=== PATIENT | male | born 1965 | race Caucasian/White ===

== ENCOUNTER → 2016-06-01 | Outpatient (REF) | payer OTHER ==
[2016-06-01 16:51] LABS: ALBUMIN 3.7 GM/DL (3.2-5.2); ALBUMIN/GLOBULIN RATIO 1.48 (1.00-1.93); ALKALINE PHOSPHATASE 48 U/L (45-117); ALT/SGPT 35 U/L (12-78); ANION GAP 7 MEQ/L (8-16); AST/SGOT 18 U/L (15-37); BILIRUBIN,TOTAL 0.5 MG/DL (0.2-1.0); BLOOD UREA NITROGEN 10 MG/DL (7-18); CARBON DIOXIDE LEVEL 30 MEQ/L (21-32); CHLORIDE LEVEL 107 MEQ/L (98-107); CHOLESTEROL LEVEL 189 MG/DL (<200); CREATININE FOR GFR 0.87 MG/DL (0.70-1.30); GLOMERULAR FILTRATION RATE > 60.0 (>56); GLUCOSE, FASTING 81 MG/DL (70-105); POTASSIUM SERUM 3.9 MEQ/L (3.5-5.1); SODIUM LEVEL 144 MEQ/L (136-145); TOTAL PROTEIN 6.2 GM/DL (6.4-8.2); TRIGLYCERIDES LEVEL 206 MG/DL (<150)
== END ==
LOC: M SFHCSACK 13:00
PROVIDERS: ATTEND Physician Assistant
DX: I10 Essential (primary) hypertension (principal); E78.5 Hyperlipidemia, unspecified

== ENCOUNTER → 2016-06-05 | Outpatient (CLI) | payer OTHER ==
--- NOTE | 2016-06-05 10:41 | REP ---
Left hip: Two views. History: Pain in the left hip. Findings: AP and frog-leg views of the left hip demonstrate smooth rounded femoral head and intact hip joint space. Periarticular soft tissues are unremarkable. No erosive changes seen. The left hemipelvis appears intact. Impression: Negative left hip radiographs. Signed by Esteban Carolina MD 06/05/2016 02:39 P
== END ==
LOC: M SMT 08:14
PROVIDERS: ATTEND Physician Assistant
DX: M25.552 Pain in left hip (principal)

== ENCOUNTER → 2016-08-10 | Outpatient (CLI) | payer OTHER ==
[~2016-08-10] VITALS: Ht 180.3 cm; Wt 97.5 kg
[~2016-08-10] MED LIST: ATEN100T PO; LISI40TAB PO; NS 1,000 ML IV SCH; OMEP40CA2 PO; PROPOFOL 200 MG/20 ML VIAL As Ordered ONE; SIMV10TA2 PO
--- NOTE | 2016-08-10 12:39 | ROOR ---
Patient Name: Chris Francis Procedure Date: 08/10/2016 12:24 PM Date of : 1965 Age: 51 Room: [facility] Gender: Male Note Status: Finalized Procedure: Colonoscopy Indications: Screening for colorectal malignant neoplasm Providers: Javy GARCIA MD Referring MD: MARLI Rick PA-C Requesting Provider: Medicines: Monitored Anesthesia Care Complications: No immediate complications. Procedure: Pre-Anesthesia Assessment: - The heart rate, respiratory rate, oxygen saturations, blood pressure, adequacy of pulmonary ventilation, and response to care were monitored throughout the procedure. The Colonoscope was introduced through the anus and advanced to the terminal ileum, with identification of the appendiceal orifice and IC valve. The colonoscopy was performed without difficulty. The patient tolerated the procedure well. The quality of the bowel preparation was good. Findings: The perianal and digital rectal examinations were normal. (Exam: Complete, Prep: Good or Excellent.) A 6 mm polyp was found in the proximal ascending colon. The polyp was semi-sessile. The polyp was removed with a cold snare. Resection and retrieval were complete. The exam was otherwise without abnormality on direct and retroflexion views. Impression: - One 6 mm polyp in the proximal ascending colon, removed with a cold snare. Resected and retrieved. - The examination was otherwise normal on direct and retroflexion views. Recommendation: - Repeat colonoscopy in 3 years for surveillance. Javy Garcia MD Javy GARCIA MD 08/10/2016 12:39:31 PM This report has been signed electronically. Number of Addenda: 0 Note Initiated On: 08/10/2016 12:24 PM Estimated Blood Loss: Estimated blood loss: none.
[2016-08-10 13:00] VITALS: BP 132/86
== END | disposition home or self-care (01) ==
LOC: M OPP 10:17
PROVIDERS: ATTEND Internal Medicine Gastroenterology
DX: Z12.11 Encounter for screening for malignant neoplasm of colon (principal); D12.2 Benign neoplasm of ascending colon; I10 Essential (primary) hypertension; E78.5 Hyperlipidemia, unspecified; R12 Heartburn; M19.90 Unspecified osteoarthritis, unspecified site; M54.2 Cervicalgia; G47.30 Sleep apnea, unspecified; R06.83 Snoring; K21.9 Gastro-esophageal reflux disease without esophagitis; F17.210 Nicotine dependence, cigarettes, uncomplicated; M95.9 Acquired deformity of musculoskeletal system, unspecified; Z79.899 Other long term (current) drug therapy; Z88.8 Allergy status to other drugs, medicaments and biological substances; Z80.3 Family history of malignant neoplasm of breast; Z80.0 Family history of malignant neoplasm of digestive organs

== ENCOUNTER → 2017-01-15 | Outpatient (CLI) | payer OTHER ==
[~2017-01-15] MED LIST changes: -NS 1,000 ML IV SCH; -PROPOFOL 200 MG/20 ML VIAL As Ordered ONE
--- NOTE | 2017-01-21 09:43 | SLEEPHOME ---
DATE OF PROCEDURE: 01/15/2017 REFERRING PROVIDER: Alisha Rosado NP INTERPRETATION: Diagnostic home sleep testing was performed due to concern for the obstructive sleep apnea syndrome in this patient with a history of excessive somnolence and of snoring. For testing, a NOX-T3 respiratory monitoring device was used. Continuous record was made of pulse, oxygen saturation, air flow, chest and abdominal strain, and body position. 9 hours and 59 minutes of data were reviewed. Of these, 7 hours and 16 minutes were marked as time in bed. During the interval marked time in bed, there were 165 respiratory events identified of 10 seconds in duration or greater for a respiratory event index of 22.7. The events were primarily obstructive, but significant mixed and central activity was also seen. The patient's baseline pulse rate was 60 beats per minute. Pulse rate ranged 42 to 100. Baseline saturation was 92%. Lowest oxygen saturation 83%. Testing was performed in both the supine and nonsupine positions. IMPRESSION: Abnormal home sleep testing with repetitive respiratory events and oxygen desaturations to 83% with a respiratory event index of 22.7 is consistent with the obstructive sleep apnea syndrome. The possibility of a complex disorder also exists given the frequency of central events. RECOMMENDATION: The patient should be referred for formal sleep evaluation and in laboratory pressure titration. Given the occurrence of central activity, a bilevel device with backup rate may be needed.
== END ==
LOC: M SLEEP HO 08:36
PROVIDERS: ATTEND Nurse Practitioner Adult Health
DX: G47.30 Sleep apnea, unspecified (principal)

== ENCOUNTER → 2017-03-26 | Outpatient (REF) | payer OTHER ==
[2017-03-26 18:05] LABS: BASO % 0.5 % (0.0-1.0); EOS # 0.3 10^3/uL (0.0-0.50); EOS % 3.5 % (0.0-3.0); IMMATURE GRANULOCYTE % 0.3 % (0-0); LYMPH # 2.6 10^3/uL (1.5-4.5); LYMPH % 34.6 % (24.0-44.0); MEAN CORPUSCULAR HEMOGLOBIN 30.6 pg (27.0-33.0); MEAN CORPUSCULAR VOLUME 89.9 fl (80.0-96.0); MONO # 0.6 10^3/uL (0.0-0.8); MONO % 7.5 % (0.0-5.0); NEUTROPHILS % 53.6 % (36.0-66.0); PLATELET COUNT, AUTOMATED 250 10^3/uL (150-450); RED CELL DISTRIBUTION WIDTH 12.3 % (11.5-14.5); WHITE BLOOD COUNT 7.4 10^3/uL (4.0-10.0)
[2017-03-26 18:15] LABS: ALBUMIN 4.5 GM/DL (3.2-5.2); ALBUMIN/GLOBULIN RATIO 1.67 (1.00-1.93); ALKALINE PHOSPHATASE 55 U/L (45-117); ALT/SGPT 44 U/L (12-78); ANION GAP 6 MEQ/L (8-16); AST/SGOT 20 U/L (7-37); BILIRUBIN,TOTAL 0.6 MG/DL (0.2-1.0); BLOOD UREA NITROGEN 14 MG/DL (7-18); CALCIUM LEVEL 9.1 MG/DL (8.5-10.1); CARBON DIOXIDE LEVEL 27 MEQ/L (21-32); CHLORIDE LEVEL 108 MEQ/L (98-107); CHOLESTEROL LEVEL 157 MG/DL (<200); CREATININE FOR GFR 1.01 MG/DL (0.70-1.30); GLOMERULAR FILTRATION RATE > 60.0 (>56); GLUCOSE, FASTING 94 MG/DL (70-105); POTASSIUM SERUM 4.5 MEQ/L (3.5-5.1); SODIUM LEVEL 141 MEQ/L (136-145); TOTAL PROTEIN 7.2 GM/DL (6.4-8.2); TRIGLYCERIDES LEVEL 194 MG/DL (<150)
== END ==
LOC: M SFHCSACK 11:20
PROVIDERS: ATTEND Physician Assistant
DX: I10 Essential (primary) hypertension (principal); E78.5 Hyperlipidemia, unspecified

== ENCOUNTER → 2017-07-12 | Outpatient (REF) | payer OTHER ==
[2017-07-12 14:12] LABS: BASO % 0.6 % (0.0-1.0); EOS # 0.2 10^3/uL (0.0-0.50); EOS % 2.7 % (0.0-3.0); HEMATOCRIT 43.4 % (42.0-52.0); HEMOGLOBIN 14.6 g/dl (14.0-18.0); IMMATURE GRANULOCYTE % 0.1 % (0-3.0); LYMPH # 2.3 10^3/uL (1.5-4.5); LYMPH % 33.8 % (24.0-44.0); MEAN CORPUSCULAR HEMOGLOBIN 30.3 pg (27.0-33.0); MEAN CORPUSCULAR HGB CONC 33.6 g/dl (32.0-36.5); MONO # 0.5 10^3/uL (0.0-0.8); NEUTROPHILS # 3.7 10^3/uL (1.8-7.7); NEUTROPHILS % 54.8 % (36.0-66.0); PLATELET COUNT, AUTOMATED 244 10^3/uL (150-450); RED BLOOD COUNT 4.82 10^6/uL (4.30-6.10); RED CELL DISTRIBUTION WIDTH 12.5 % (11.5-14.5); WHITE BLOOD COUNT 6.8 10^3/uL (4.0-10.0)
[2017-07-12 14:30] LABS: TOTAL 25(OH) VITAMIN D 20.7 NG/ML (30.0-100.0)
[2017-07-12 14:33] LABS: ALBUMIN/GLOBULIN RATIO 1.38 (1.00-1.93); ALKALINE PHOSPHATASE 47 U/L (45-117); ALT/SGPT 28 U/L (12-78); ANION GAP 7 MEQ/L (8-16); AST/SGOT 16 U/L (7-37); BILIRUBIN,TOTAL 0.5 MG/DL (0.2-1.0); BLOOD UREA NITROGEN 10 MG/DL (7-18); CALCIUM LEVEL 9.1 MG/DL (8.5-10.1); CARBON DIOXIDE LEVEL 30 MEQ/L (21-32); CHLORIDE LEVEL 105 MEQ/L (98-107); CHOLESTEROL LEVEL 206 MG/DL (<200); CHOLESTEROL RISK RATIO 5.885 (<5); CREATININE FOR GFR 0.93 MG/DL (0.70-1.30); FREE T4 0.93 NG/DL (0.76-1.46); GLOMERULAR FILTRATION RATE > 60.0 (>56); GLUCOSE, FASTING 96 MG/DL (70-100); HDL CHOLESTEROL 35 MG/DL (>40); LDL CHOLESTEROL 116.2 MG/DL (<100); NON-HDL-C 171 MG/DL; POTASSIUM SERUM 4.3 MEQ/L (3.5-5.1); SODIUM LEVEL 142 MEQ/L (136-145); TOTAL PROTEIN 6.9 GM/DL (6.4-8.2); TRIGLYCERIDES LEVEL 274 MG/DL (<150)
== END ==
LOC: M SFHCSACK 09:16
DX: I10 Essential (primary) hypertension (principal); E78.5 Hyperlipidemia, unspecified; F41.1 Generalized anxiety disorder; Z13.21 Encounter for screening for nutritional disorder

== ENCOUNTER → 2017-10-22 | Outpatient (REF) | payer OTHER ==
[2017-10-22 12:29] LABS: BASO # 0.1 10^3/uL (0.0-0.2); BASO % 0.7 % (0.0-1.0); EOS # 0.3 10^3/uL (0.0-0.50); EOS % 3.4 % (0.0-3.0); HEMATOCRIT 44.6 % (42.0-52.0); HEMOGLOBIN 15.1 g/dl (13.5-17.5); IMMATURE GRANULOCYTE % 0.5 % (0-3.0); LYMPH # 2.2 10^3/uL (1.5-4.5); LYMPH % 29.6 % (24.0-44.0); MEAN CORPUSCULAR HGB CONC 33.9 g/dl (32.0-36.5); MEAN CORPUSCULAR VOLUME 88.5 fl (80.0-96.0); MONO # 0.6 10^3/uL (0.0-0.8); MONO % 7.4 % (0.0-5.0); NEUTROPHILS # 4.3 10^3/uL (1.8-7.7); NEUTROPHILS % 58.4 % (36.0-66.0); PLATELET COUNT, AUTOMATED 250 10^3/uL (150-450); RED BLOOD COUNT 5.04 10^6/uL (4.30-6.10); RED CELL DISTRIBUTION WIDTH 13.3 % (11.5-14.5); WHITE BLOOD COUNT 7.4 10^3/uL (4.0-10.0)
[2017-10-22 12:50] LABS: ALBUMIN 3.9 GM/DL (3.2-5.2); ALBUMIN/GLOBULIN RATIO 1.34 (1.00-1.93); ALKALINE PHOSPHATASE 53 U/L (45-117); ALT/SGPT 36 U/L (12-78); ANION GAP 5 MEQ/L (8-16); AST/SGOT 19 U/L (7-37); BILIRUBIN,TOTAL 0.7 MG/DL (0.2-1.0); BLOOD UREA NITROGEN 10 MG/DL (7-18); CALCIUM LEVEL 8.9 MG/DL (8.5-10.1); CARBON DIOXIDE LEVEL 30 MEQ/L (21-32); CHLORIDE LEVEL 107 MEQ/L (98-107); CHOLESTEROL LEVEL 141 MG/DL (<200); CHOLESTEROL RISK RATIO 4.272 (<5); CREATININE FOR GFR 1.11 MG/DL (0.70-1.30); GLOMERULAR FILTRATION RATE > 60.0 (>56); GLUCOSE, FASTING 106 MG/DL (70-100); HDL CHOLESTEROL 33 MG/DL (>40); LDL CHOLESTEROL 67.4 MG/DL (<100); NON-HDL-C 108 MG/DL; POTASSIUM SERUM 4.7 MEQ/L (3.5-5.1); SODIUM LEVEL 142 MEQ/L (136-145); TOTAL 25(OH) VITAMIN D 41.1 NG/ML (30.0-100.0); TOTAL PROTEIN 6.8 GM/DL (6.4-8.2); TRIGLYCERIDES LEVEL 203 MG/DL (<150)
== END ==
LOC: M SFHCADAM 09:08
DX: E78.5 Hyperlipidemia, unspecified (principal); I10 Essential (primary) hypertension; E55.9 Vitamin D deficiency, unspecified

== ENCOUNTER → 2018-05-11 | Outpatient (REF) | payer OTHER ==
[~2018-05-11] MED LIST changes: +LISI40TA PO; -LISI40TAB PO
[2018-05-11 14:11] LABS: BASO % 0.6 % (0.0-1.0); EOS # 0.4 10^3/uL (0.0-0.50); EOS % 6.3 % (0.0-3.0); HEMATOCRIT 41.3 % (42.0-52.0); HEMOGLOBIN 13.8 g/dl (13.5-17.5); LYMPH % 31.1 % (24.0-44.0); MEAN CORPUSCULAR HGB CONC 33.4 g/dl (32.0-36.5); MEAN CORPUSCULAR VOLUME 89.8 fl (80.0-96.0); MONO # 0.5 10^3/uL (0.0-0.8); MONO % 8.3 % (0.0-5.0); NEUTROPHILS # 3.5 10^3/uL (1.8-7.7); NEUTROPHILS % 53.5 % (36.0-66.0); PLATELET COUNT, AUTOMATED 214 10^3/uL (150-450); WHITE BLOOD COUNT 6.5 10^3/uL (4.0-10.0)
[2018-05-11 14:41] LABS: ALBUMIN 3.7 GM/DL (3.2-5.2); ALT/SGPT 27 U/L (12-78); BILIRUBIN,TOTAL 0.5 MG/DL (0.2-1.0); BLOOD UREA NITROGEN 10 MG/DL (7-18); CALCIUM LEVEL 8.4 MG/DL (8.5-10.1); CARBON DIOXIDE LEVEL 28 MEQ/L (21-32); CHLORIDE LEVEL 107 MEQ/L (98-107); CHOLESTEROL LEVEL 135 MG/DL (<200); CREATININE FOR GFR 0.97 MG/DL (0.70-1.30); GLOMERULAR FILTRATION RATE > 60.0 (>56); GLUCOSE, FASTING 104 MG/DL (70-100); HDL CHOLESTEROL 34 MG/DL (>40); LDL CHOLESTEROL 69 MG/DL (<100); NON-HDL-C 101 MG/DL; POTASSIUM SERUM 4.1 MEQ/L (3.5-5.1); SODIUM LEVEL 143 MEQ/L (136-145); TOTAL PROTEIN 6.3 GM/DL (6.4-8.2); TRIGLYCERIDES LEVEL 160 MG/DL (<150)
== END ==
LOC: M SFHCSACK 09:46
PROVIDERS: ATTEND Physician Assistant
DX: I10 Essential (primary) hypertension (principal); E78.5 Hyperlipidemia, unspecified; E55.9 Vitamin D deficiency, unspecified

== ENCOUNTER → 2018-07-12 | Outpatient (CLI) | payer OTHER ==
--- NOTE | 2018-07-12 10:54 | REP ---
Clinical: Hypertension and fatigue . Comparison: 10/30/2016 . Technique: PA and lateral. Findings: The mediastinum and cardiac silhouette are normal. The lung diaz are clear and without acute consolidation, effusion, or pneumothorax. The skeletal structures are intact and normal. Impression: 1. No acute cardiopulmonary process. Electronically Signed by Chris Pepe MD 07/12/2018 10:46 A
[2018-07-12 11:05] LABS: HEMATOCRIT 42.9 % (42.0-52.0); HEMOGLOBIN 14.2 g/dl (13.5-17.5); MEAN CORPUSCULAR HEMOGLOBIN 30.1 pg (27.0-33.0); MEAN CORPUSCULAR HGB CONC 33.1 g/dl (32.0-36.5); MEAN CORPUSCULAR VOLUME 90.9 fl (80.0-96.0); PLATELET COUNT, AUTOMATED 200 10^3/uL (150-450); RED BLOOD COUNT 4.72 10^6/uL (4.30-6.10)
[2018-07-12 11:33] LABS: HEMOGLOBIN A1c 6.4 %
[2018-07-12 11:38] LABS: ALBUMIN 3.9 GM/DL (3.2-5.2); ALT/SGPT 27 U/L (12-78); BILIRUBIN,TOTAL 0.5 MG/DL (0.2-1.0); BLOOD UREA NITROGEN 6 MG/DL (7-18); CALCIUM LEVEL 8.6 MG/DL (8.5-10.1); CARBON DIOXIDE LEVEL 30 MEQ/L (21-32); CHLORIDE LEVEL 109 MEQ/L (98-107); CHOLESTEROL LEVEL 112 MG/DL (<200); CHOLESTEROL RISK RATIO 3.111 (<5); CREATININE FOR GFR 0.94 MG/DL (0.70-1.30); GLOMERULAR FILTRATION RATE > 60.0 (>56); GLUCOSE, FASTING 85 MG/DL (70-100); HDL CHOLESTEROL 36 MG/DL (>40); LDL CHOLESTEROL 54 MG/DL (<100); NON-HDL-C 76 MG/DL; POTASSIUM SERUM 4.2 MEQ/L (3.5-5.1); SODIUM LEVEL 144 MEQ/L (136-145); TOTAL PROTEIN 6.4 GM/DL (6.4-8.2); TRIGLYCERIDES LEVEL 108 MG/DL (<150)
[2018-07-12 11:40] LABS: TOTAL 25(OH) VITAMIN D 47.3 NG/ML (30.0-100.0)
[2018-07-12 11:41] LABS: TESTOSTERONE 333 NG/DL (241-827)
--- NOTE | 2018-07-13 07:06 | ECGEPIP ---
Stationary ECG Study [facility] Test Date: 2018-07-12 Pat Name: AMEYA JERONIMO Department: Room: - Gender: M Residential [employer]: : 1965 Requested By: Colt Saenz Order Number: [id number] Reading MD: Garrick Do Measurements Intervals [place] Rate: 47 P: 33 DC: 149 QRS: 5 QRSD: 101 T: 38 QT: 445 QTc: 395 Interpretive Statements SINUS BRADYCARDIA Otherwise normal Electronically Signed On 07-13-2018 7:06:36 EST by Garrick Do
== END ==
LOC: M LAB 10:07
PROVIDERS: ATTEND Family Medicine
DX: I10 Essential (primary) hypertension (principal); R53.83 Other fatigue; E11.9 Type 2 diabetes mellitus without complications

== ENCOUNTER → 2019-12-30 | Outpatient (CLI) | payer OTHER ==
[~2019-12-30] MED LIST changes: -OMEP40CA2 PO; +OMEP40CA97 PO; -SIMV10TA2 PO; +SIMV10TA21 PO
== END ==
LOC: M LABSMTC 08:30
PROVIDERS: ATTEND Physical Medicine & Rehabilitation
DX: Z03.818 Encounter for observation for suspected exposure to other biological agents ruled out (principal); Z11.59 Encounter for screening for other viral diseases
CPT/HCPCS: C9803; U0003

== ENCOUNTER → 2020-01-20 | Outpatient (CLI) | payer OTHER | LOC: M LABSMTC 08:12 | PROVIDERS: ATTEND Orthopaedic Surgery | DX: Z20.828 Contact with and (suspected) exposure to other viral communicable diseases (principal) ==

== ENCOUNTER → 2020-02-03 | Outpatient (CLI) | payer OTHER | LOC: M LABSMTC 08:28 | PROVIDERS: ATTEND Orthopaedic Surgery | DX: Z20.828 Contact with and (suspected) exposure to other viral communicable diseases (principal) ==

== ENCOUNTER → 2020-04-24 | Outpatient (CLI) | payer OTHER ==
[~2020-04-24] MED LIST changes: +VITA500045 PO
== END ==
LOC: M LABSMTC 09:38
PROVIDERS: ATTEND Anesthesiology
DX: Z01.812 Encounter for preprocedural laboratory examination (principal); Z11.59 Encounter for screening for other viral diseases

== ENCOUNTER → 2020-08-05 | Outpatient (CLI) | payer OTHER ==
[~2020-08-05] MED LIST changes: -LISI40TA PO; +LISI40TA4 PO
[2020-08-05 10:02] LABS: HEMOGLOBIN 14.6 g/dl (13.5-17.5); MEAN CORPUSCULAR HEMOGLOBIN 29.9 pg (27.0-33.0); MEAN CORPUSCULAR HGB CONC 33.2 g/dl (32.0-36.5); MEAN CORPUSCULAR VOLUME 90.2 fl (80.0-96.0); PLATELET COUNT, AUTOMATED 229 10^3/uL (150-450); RED BLOOD COUNT 4.88 10^6/uL (4.30-6.10); WHITE BLOOD COUNT 6.9 10^3/uL (4.0-10.0)
[2020-08-05 10:28] LABS: HEMOGLOBIN A1c 5.9 %
[2020-08-05 11:14] LABS: ALBUMIN 3.8 GM/DL (3.2-5.2); ALT/SGPT 32 U/L (12-78); BILIRUBIN,TOTAL 0.5 MG/DL (0.2-1.0); BLOOD UREA NITROGEN 15 MG/DL (7-18); CALCIUM LEVEL 9.1 MG/DL (8.5-10.1); CARBON DIOXIDE LEVEL 26 MEQ/L (21-32); CHLORIDE LEVEL 106 MEQ/L (98-107); CHOLESTEROL LEVEL 153 MG/DL (<200); CREATININE FOR GFR 0.89 MG/DL (0.70-1.30); GLOMERULAR FILTRATION RATE > 60.0 (>56); GLUCOSE, FASTING 111 MG/DL (70-100); HDL CHOLESTEROL 34 MG/DL (>40); LDL CHOLESTEROL 79 MG/DL (<100); NON-HDL-C 119 MG/DL; POTASSIUM SERUM 4.6 MEQ/L (3.5-5.1); PROSTATIC SPECIFIC AG MONITOR 0.56 NG/ML (< 4.00); SODIUM LEVEL 139 MEQ/L (136-145); TESTOSTERONE 194 NG/DL (241-827); TOTAL PROTEIN 6.6 GM/DL (6.4-8.2); TRIGLYCERIDES LEVEL 201 MG/DL (<150)
== END ==
LOC: M LAB 09:28
PROVIDERS: ATTEND Family Medicine
DX: E03.9 Hypothyroidism, unspecified (principal); R53.83 Other fatigue; I10 Essential (primary) hypertension

== ENCOUNTER → 2020-11-05 | Outpatient (CLI) | payer OTHER ==
[~2020-11-05] MED LIST changes: +OMEP40CA4 PO; -OMEP40CA97 PO
[2020-11-05 10:19] LABS: GLUCOSE, FASTING 113 MG/DL (70-100)
[2020-11-05 10:44] LABS: HEMOGLOBIN A1c 5.9 %
[2020-11-05 11:54] LABS: TESTOSTERONE 251 NG/DL (241-827)
== END ==
LOC: M LAB 09:09
PROVIDERS: ATTEND Family Medicine
DX: I10 Essential (primary) hypertension (principal); E11.9 Type 2 diabetes mellitus without complications; E29.1 Testicular hypofunction

== ENCOUNTER 2021-03-20 10:16 | Emergency (ER) | payer OTHER ==
[~2021-03-20] VITALS: Ht 175.3 cm; Wt 102.8 kg
[2021-03-20 10:16] VITALS: BP 135/76
--- OUTSIDE RECORDS SUMMARY | 2021-03-20 10:27 | CCD ---
Author Author [facility] Organization [facility] Address Unknown Phone Unavailable Support Name Relationship Address Phone [place] [address] UE Next Of Kin Unknown Unavailable RENBEVERLYVALARIE Next Of Kin [address] [place] [address] [place] [address] LAN MANZANO SR Next Of Kin [address] [place] [address] MARIAM FRANCIS Next Of Kin [address] [place] [address] W[place]DO [place] [address] Mariam Francis [address] [place] [address] [phone] Re-disclosure Warning The records that you are about to access may contain information from federally-assisted alcohol or drug abuse programs. If such information is present, then the following federally mandated warning applies: This information has been disclosed to you from records protected by federal confidentiality rules (42 CFR part 2). The federal rules prohibit you from making any further disclosure of this information unless further disclosure is expressly permitted by the written consent of the person to whom it pertains or as otherwise permitted by 42 CFR part 2. A general authorization for the release of medical or other information is NOT sufficient for this purpose. The Federal rules restrict any use of the information to criminally investigate or prosecute any alcohol or drug abuse patient.The records that you are about to access may contain highly sensitive health information, the redisclosure of which is protected by Article 27-F of the [facility] Public Health law. If you continue you may have access to information: Regarding HIV / AIDS; Provided by facilities licensed or operated by the [facility] Office of Mental Health; or Provided by the [facility] Office for People With Developmental Disabilities. If such information is present, then the following [facility] mandated warning applies: This information has been disclosed to you from confidential records which are protected by state law. State law prohibits you from making any further disclosure of this information without the specific written consent of the person to whom it pertains, or as otherwise permitted by law. Any unauthorized further disclosure in violation of state law may result in a fine or halfway sentence or both. A general authorization for the release of medical or other information is NOT sufficient authorization for further disc losure. Family History Family Member Name Family Member Gender Family Member Status Date o f Status Description Data Source(s) Unknown Unknown Problem [facility] ([facility], ) Unknown Male Problem [facility] ([facility]) Unknown Male Problem [facility] () Unknown Female Problem [facility] ([facility] ) Immunizations Vaccine Date Status Description Data Source(s) COVID-19 VACCINE Moderna 09/09/2020 12:00:00 AM EDT completed [facility] Vaccine Series Complete: YESThis Data wa s Submitted to [facility] Via [employer] / [employer]. COVID-19 VACCINE Moderna 08/12/2020 12:00:00 AM EDT completed [facility] Vaccine Series Complete: NOThis Data was Submitted to [facility] Via [employer] / [employer]. VARICELLA-ZOSTER VIRUS GLYCOPROTEIN E,REC/AS01B ADJUVA NT/PF 02/05/2020 12:00:00 AM EDT completed [facility] INFLUENZA VIRUS VACCINE QUADRIVALENT 2019- (6 MOS AN D UP) 02/05/2020 12:00:00 AM EDT completed [facility] Medications Medication Brand Name Start Date Product Form Dose Route Admi nistrative Instructions Pharmacy Instructions Status Indications Reaction Description Data Source(s) 60 mcg (15 mcg x 4)/0.5 mL 02/26/2021 12:00:00 AM EDT syring e 0 INJECT INTRAMUSCULARLY DIRECTED INJECT INTRAMUSCULARLY DIRECTED SOLD: 02/26/2021 [facility] 10 mg 02/04/2021 12:00:00 AM EDT tablet 90 TAKE ONE TABLET BY MOUTH EVERY DAY TAKE ONE TABLET BY MOUTH EVERY DAY SOLD: 02/11/2021 [facility] 100 mg 02/03/2021 12:00:00 AM EDT tablet 90 TAKE ONE TABLET BY MOUTH EVERY DAY TAKE ONE TABLET BY MOUTH EVERY DAY SOLD: 02/11/2021 [facility] 40 mg 02/02/2021 12:00:00 AM EDT tablet 90 TAKE ONE TABLET BY MOUTH EVERY DAY TAKE ONE TABLET BY MOUTH EVERY DAY SOLD: 02/11/2021 [facility] 40 mg 02/01/2021 12:00:00 AM EDT tablet 90 TAKE ONE TABLET BY MOUTH EVERY DAY TAKE ONE TABLET BY MOUTH EVERY DAY SOLD: 02/11/2021 [facility] 40 mg 02/01/2021 12:00:00 AM EDT capsule,delayed release (DR/EC) 180 TAKE ONE CAPSULE BY MOUTH TWICE A DAY TAKE ONE CAPSULE BY MOUTH TWICE A DAY SOLD: 02/11/2021 [facility] 1,250 mcg (50,000 unit) 01/14/2021 12:00:00 AM EDT capsule 12 TAKE 1 CAPSULE BY MOUTH ONCE PER WEEK TAKE 1 CAPSULE BY MOUTH ONCE PER WEEK SOLD: 01/18/2021 [facility] 40 mg 11/17/2020 12:00:00 AM EDT tablet 90 TAKE ONE TABLET BY MOUTH EVERY DAY TAKE ONE TABLET BY MOUTH EVERY DAY SOLD: 11/20/2020 [facility] 10 mg 11/09/2020 12:00:00 AM EDT tablet 90 TAKE ONE TABLET BY MOUTH EVERY DAY TAKE ONE TABLET BY MOUTH EVERY DAY SOLD: 11/15/2020 [facility] 100 mg 11/07/2020 12:00:00 AM EDT tablet 90 TAKE ONE TABLET BY MOUTH EVERY DAY TAKE ONE TABLET BY MOUTH EVERY DAY SOLD: 11/08/2020 [facility] 40 mg 10/31/2020 12:00:00 AM EDT capsule,delayed release (DR/EC) 180 TAKE ONE CAPSULE BY MOUTH TWICE A DAY TAKE ONE CAPSULE BY MOUTH TWICE A DAY SOLD: 11/08/2020 [facility] 40 mg 10/31/2020 12:00:00 AM EDT tablet 90 TAKE ONE TABLET BY MOUTH EVERY DAY TAKE ONE TABLET BY MOUTH EVERY DAY SOLD: 11/08/2020 [facility] 1,250 mcg (50,000 unit) 08/20/2020 12:00:00 AM EDT capsule 4 TAKE 1 CAPSULE BY MOUTH ONCE PER WEEK TAKE 1 CAPSULE BY MOUTH ONCE PER WEEK SOLD: 10/24/2020 [facility] 1,250 mcg (50,000 unit) 08/20/2020 12:00:00 AM EDT capsule 4 TAKE 1 CAPSULE BY MOUTH ONCE PER WEEK TAKE 1 CAPSULE BY MOUTH ONCE PER WEEK SOLD: 09/24/2020 [facility] 1,250 mcg (50,000 unit) 08/20/2020 12:00:00 AM EDT capsule 4 TAKE 1 CAPSULE BY MOUTH ONCE PER WEEK TAKE 1 CAPSULE BY MOUTH ONCE PER WEEK SOLD: 08/27/2020 [facility] 100 mg 07/31/2020 12:00:00 AM EDT tablet 30 TAKE ONE TABLET BY MOUTH EVERY DAY TAKE ONE TABLET BY MOUTH EVERY DAY SOLD: 08/07/2020 [facility] 40 mg 07/31/2020 12:00:00 AM EDT tablet 30 TAKE ONE TABLET BY MOUTH EVERY DAY TAKE ONE TABLET BY MOUTH EVERY DAY SOLD: 08/07/2020 [facility] 40 mg 07/31/2020 12:00:00 AM EDT capsule,delayed release (DR/EC) 60 TAKE ONE CAPSULE BY MOUTH TWICE A DAY TAKE ONE CAPSULE BY MOUTH TWICE A DAY SOLD: 08/07/2020 [facility] 100 mg 07/31/2020 12:00:00 AM EDT tablet 30 TAKE ONE TABLET BY MOUTH EVERY DAY TAKE ONE TABLET BY MOUTH EVERY DAY SOLD: 10/14/2020 [facility] 40 mg 07/31/2020 12:00:00 AM EDT tablet 30 TAKE ONE TABLET BY MOUTH EVERY DAY TAKE ONE TABLET BY MOUTH EVERY DAY SOLD: 10/24/2020 [facility] 40 mg 07/31/2020 12:00:00 AM EDT tablet 30 TAKE ONE TABLET BY MOUTH EVERY DAY TAKE ONE TABLET BY MOUTH EVERY DAY SOLD: 09/24/2020 [facility] 100 mg 07/31/2020 12:00:00 AM EDT tablet 30 TAKE ONE TABLET BY MOUTH EVERY DAY TAKE ONE TABLET BY MOUTH EVERY DAY SOLD: 09/15/2020 [facility] 40 mg 07/31/2020 12:00:00 AM EDT tablet 30 TAKE ONE TABLET BY MOUTH EVERY DAY TAKE ONE TABLET BY MOUTH EVERY DAY SOLD: 08/07/2020 [facility] 0.12 % 06/26/2020 12:00:00 AM EST mouthwash 473 STARTING TOMORROW 5-10ML SWISH AND EXPECTORATE THREE TIMES A DAY STARTING TOMORROW 5-10ML SWISH AND EXPECTORATE THREE TIMES A DAY SOLD: 06/26/2020 [facility] 5-325 mg 06/26/2020 12:00:00 AM EST tablet 12 TAKE 1 TABLET BY MOUTH EVERY 4-6 HOUR NEEDED FOR PAIN MAXIMUM DAILY DOSE = FOUR TABLETS TAKE 1 TABLET BY MOUTH EVERY 4-6 HOUR NEEDED FOR PAIN MAXIMUM DAILY DOSE = FOUR TABLETS SOLD: 06/26/2020 [facility] 500 mg 06/26/2020 12:00:00 AM EST capsule 21 TAKE ONE CAPSULE BY MOUTH EVERY 8 HOURS TAKE ONE CAPSULE BY MOUTH EVERY 8 HOURS SOLD: 06/26/2020 [facility] Clindamycin 150 MG Oral Capsule CLINDAMYCIN HCL 06/05/2020 12:00 :00 AM EST capsule 30 TAKE ONE CAPSULE BY MOUTH EVERY 8 HOURS UNTIL GONE TAKE ONE CAPSULE BY MOUTH EVERY 8 HOURS UNTIL GONE SOLD: 06/05/2020 [facility] 1,250 mcg (50,000 unit) 04/30/2020 12:00:00 AM EST capsule 4 TAKE 1 CAPSULE BY MOUTH ONCE PER WEEK TAKE 1 CAPSULE BY MOUTH ONCE PER WEEK SOLD: 12/19/2020 [facility] 1,250 mcg (50,000 unit) 04/30/2020 12:00:00 AM EST capsule 4 TAKE 1 CAPSULE BY MOUTH ONCE PER WEEK TAKE 1 CAPSULE BY MOUTH ONCE PER WEEK SOLD: 07/25/2020 [facility] 1,250 mcg (50,000 unit) 04/30/2020 12:00:00 AM EST capsule 4 TAKE 1 CAPSULE BY MOUTH ONCE PER WEEK TAKE 1 CAPSULE BY MOUTH ONCE PER WEEK SOLD: 11/15/2020 [facility] 1,250 mcg (50,000 unit) 04/30/2020 12:00:00 AM EST capsule 12 TAKE 1 CAPSULE BY MOUTH ONCE PER WEEK TAKE 1 CAPSULE BY MOUTH ONCE PER WEEK SOLD: 05/06/2020 [facility] 100 mg 04/29/2020 12:00:00 AM EST tablet 90 TAKE ONE TABLET BY MOUTH EVERY DAY TAKE ONE TABLET BY MOUTH EVERY DAY SOLD: 05/06/2020 [facility] 40 mg 04/29/2020 12:00:00 AM EST tablet 90 TAKE ONE TABLET BY MOUTH EVERY DAY TAKE ONE TABLET BY MOUTH EVERY DAY SOLD: 05/06/2020 [facility] 10 mg 04/29/2020 12:00:00 AM EST tablet 90 TAKE ONE TABLET BY MOUTH EVERY DAY TAKE ONE TABLET BY MOUTH EVERY DAY SOLD: 05/06/2020 [facility] 40 mg 04/29/2020 12:00:00 AM EST tablet 90 TAKE ONE TABLET BY MOUTH EVERY DAY TAKE ONE TABLET BY MOUTH EVERY DAY SOLD: 05/06/2020 [facility] 40 mg 01/30/2020 12:00:00 AM EDT tablet 90 TAKE ONE TABLET BY MOUTH EVERY DAY TAKE ONE TABLET BY MOUTH EVERY DAY SOLD: 02/02/2020 [facility] 40 mg 01/30/2020 12:00:00 AM EDT tablet 90 TAKE ONE TABLET BY MOUTH EVERY DAY TAKE ONE TABLET BY MOUTH EVERY DAY SOLD: 02/02/2020 [facility] 40 mg 01/30/2020 12:00:00 AM EDT capsule,delayed release (DR/EC) 180 TAKE ONE CAPSULE BY MOUTH TWICE A DAY TAKE ONE CAPSULE BY MOUTH TWICE A DAY SOLD: 02/02/2020 [facility] Atenolol 100 MG Oral Tablet ATENOLOL 01/30/2020 12:00:00 AM EDT table t 90 TAKE ONE TABLET BY MOUTH EVERY DAY TAKE ONE TABLET BY MOUTH EVERY DAY SOLD: 02/02/2020 [facility] 40 mg 01/30/2020 12:00:00 AM EDT capsule,delayed release (DR/EC) 180 TAKE ONE CAPSULE BY MOUTH TWICE A DAY TAKE ONE CAPSULE BY MOUTH TWICE A DAY SOLD: 05/06/2020 [facility] 10 mg 01/30/2020 12:00:00 AM EDT tablet 90 TAKE ONE TABLET BY MOUTH EVERY DAY TAKE ONE TABLET BY MOUTH EVERY DAY SOLD: 02/02/2020 [facility] 1,250 mcg (50,000 unit) 12/19/2019 12:00:00 AM EDT capsule 12 TAKE 1 CAPSULE BY MOUTH ONCE PER WEEK TAKE 1 CAPSULE BY MOUTH ONCE PER WEEK SOLD: 02/02/2020 [facility] Insurance Providers Payer name Policy type / Coverage type Policy ID Covered democrat ID Covered democrat's relationship to best Policy Best Plan Information [facility] [employer] () Workers Compensation [id number] Self [id number] [facility] [employer] () Workers Compensation [id number] Self [facility] [id number] Self [id number] [facility] Community Plan Commercial [id number] Self [id number] [facility] Community Plan Commercial [id number] Self [id number] [facility] Community Plan Commercial [id number] Self [id number] [facility] Community Plan Commercial [id number] Self [id number] [facility] Community Plan Commercial [id number] Self [id number] [facility] Community Plan Commercial [id number] Self [id number] [facility] Community Plan Commercial [id number] Self [facility] Community Plan Commercial [id number] Self [id number] [facility] COMMUNITY PLAN [facility] [id number] SP [id number] [facility] Health Maintenance Organization (HMO) [id number] Self [id number] [facility] COMMUNITY PLAN [facility] [id number] SP [id number] BC/BS OF [place] P [id number] S [id number] Managed Care Healthplex O [id number] S [id number] Managed Care BCBS P [id number] S [id number] Medicaid S UNAVAILABLE S UNAVAILA BLE [employer] BCYO O [id number] S [id number] O BLUE [id number] SP [id number] [facility] COMMUNITY PLAN [facility] [id number] SP [id number] [facility] [id number] S [id number] Hmo Blue Option/Medicaid Health Maintenance Organization (HMO) V [id number] Self V [id number] Medicaid [place] Medigap Part B [id number] Self [id number] [facility] Health Maintenance Organization (O) [id number] Self [id number] ANSI-Medicaid [id number] ANSI-Medicaid [id number] ANSI-Medicaid [id number] [facility] Commercial [id number] Self 1 [id number] [employer] Medicaid Medicaid [id number] Self [id number] [facility] Blue Option/Medicaid Health Maintenance Organization (HMO) V [id number] Self V [id number] Medicaid [place] Medigap Part B [id number] Self [id number] Problems, Conditions, and Diagnoses No Information Surgeries/Procedures Procedure Description Date Indications Data Source(s) Colonoscopy W/ Poly 04/29/2020 12:00:00 AM EST [facility] ([facility], ) Results ID Date Data Source [id number] 04/29/2020 09:33:00 AM EST [facility] ([facility], ) Name Value Range Interpretation Code Description Data Velma rce(s) Supporting Document(s) Surgical pathology study Laboratory test result [facility] ([facility], ) FINAL DIAGNOSIS Colon, sigmoid polyp, polypectomy: Tubular adenoma. 04/30/2020 - 1053 CLINICAL DIAGNOSIS Colon polyps, family history colon cancer 04/29/2020 - 1446 GROSS DIAGNOSIS Received in formalin labeled "sigmoid polyp" and consists of a fragment of tissue, 0.6 x 0.6 x 0.2 cm. All in one. -OA 04/29/20201446 Signed ELAINE FERMIN MD 04/30/2020 1054 ID Date Data Source [id number] 04/24/2020 10:00:00 AM EST [facility] Name Value Range Interpretation Code Description Data Velma rce(s) Supporting Document(s) SARS coronavirus 2 RNA [facility] This lab was ordered by [facility] and reported by [facility]. ID Date Data Source [id number] 04/03/2020 12:00:00 AM EST [facility] Patient Name: JACINTA FRANCIS [facility] Date of : 1965 Date of Exam: 04/03/2020ALLY Hilario [id number]#: Fax: [phone] EXAM: MRI LUMBAR SPINE WITHOUT CONTRASTPROCEDURE INFORMATION:Exam: MR Lumbar Spine Without Contrast.Exam date and time: 04/03/2020 12:52 PM Age: 54 years oldClinical indication: Low back painTECHNIQUE: Imaging protocol: Multiplanar magnetic resonance images of thelumbar spine without intravenous contrast.COMPARISON: MRI LUMBAR SPINE WITHOUT CONTRAST 10/30/2017 9:03 AMFINDINGS:Vertebrae: 4 mm of retrolisthesis of L3 on L4. 5 mm of degenerativeretrolisthesis of L4 on L5. Slight lower lumbar dextroconvex scoliosis. Noacute fracture seen.Spinal epidural space: There is tapering of the AP thecal sac diameter atbaseline due to epidural lipomatosis, as before.Spinal cord: The conus medullaris ends normally. There is disc desiccationfrom L3-L4 and below. Disc height loss and spondylosis is pxfy-ib-obzxgsblgt L5-S1, mild at L3-L4 and L4-L5. Predominantly fatty degenerative marrowsignal change of the L4- L5 and L5-S1 endplates. There is tracedegenerative endplate inflammation.L1-L2: No significant disc disease. No significant spinal canal stenosis.No neural foraminal stenosis. L2-L3: No significant disc disease. Nosignificant spinal canal stenosis. No neural foraminal stenosis. L3-L4: Nosignificant interval change. Retrolisthesis. Mild to moderate diffuse discbulge and facet arthropathy. High-intensity zone in left posterior discmargin without a focal disc protrusion or extrusion. 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 The neural foramina are patent.L4-L5: Retrolisthesis. Moderate diffuse disc bulge and facet arthropathywith small facet joint effusions. Previously demonstrated left paracentraldisc protrusion is no longer identified. Highintensity zone in leftposterior disc margin. Mild central spinal canal stenosis present mostly onthe basis of dorsal lipomatosis. Mild left neural foraminal stenosis. Nosignificant right neural foraminal narrowing.L5-S1: No significant interval change. Marked diffuse disc osteophytecomplex as well as moderate facet arthropa thy with facet joint effusionsand small extra canalicular synovial cyst on the right. No significantcentral spinal canal stenosis. No S1 nerve root impingement. Moderate rightand mild-tomoderate left neural foraminal stenoses, the exiting L5 nerveroots contact foraminal to far lateral disc osteophyte.Soft tissues: Nonspecific edema in the back subcutaneous fat, potentiallydependent/positional.IMPRESSION:1. Previously demonstrated left paracentral disc protrusion at L4-L5 is nolonger seen.2. Otherwise no significant interval change.3. Moderate right and eebl-tw-jhrvvdri left neural foraminal stenoses atL5-S1 may be cause of L5 distribution radiculopathy.Thank you for allowing us to participate in the care of your patient.Dictated and Authenticated by: Brigid Guzman MD 04/03/2020 2:33 PMEastern Time ([place] & [place])VradV/jmcThank you for referring AMEYA FRANCIS to our office. Electronically Signed - [facility] 04/03/20 15:06 Name Value Range Interpretation Code Description Data Velma rce(s) Supporting Document(s) ID Date Data Source [id number] 02/03/2020 10:00:00 AM EDT [facility] ([facility]) Name Value Range Interpretation Code Description Data Velma rce(s) Supporting Document(s) Coronavirus 2019 Nasopharygeal Laboratory test result [facility] ([facility] ) This nucleic acid amplification test was developed and its performance characteristics determined by [employer]. Nucleic acid amplification tests include PCR and TMA. This test has not been FDA cleared or approved. This test has been authorized by FDA under an Emergency Use Authorization (EUA). This test is only authorized for the duration of time the declaration that circumstances exist justifying the authorization of the emergency use of in vitro diagnostic tests for detection of SARS-CoV-2 virus and/or diagnosis of COVID-19 infection under section 564(b)(1) of the Act, 21 U.S.C. 360bbb-3 (b) (1), unless the authorization is terminated or revoked sooner. When diagnostic testing is negative, the possibility of a false negative result should be considered in the context of a patient's recent exposures and the presence of clinical signs and symptoms consistent with COVID-19. An individual without symptoms of COVID-19 and who is not shedding SARS-CoV-2 virus would expect to have a negative (not detected) result in this assay. Performed at: [address] [id number] [employer] Operator: Beatriz Raya MD, Phone: [phone] Not Detected ID Date Data Source [id number] 02/03/2020 10:00:00 AM EDT [facility] Name Value Range Interpretation Code Description Data Velma rce(s) Supporting Document(s) SARS coronavirus 2 RNA [facility] This lab was ordered by [facility] and reported by [facility]. ID Date Data Source [id number] 01/20/2020 09:00:00 AM EDT [facility] ([facility]) Name Value Range Interpretation Code Description Data Velma rce(s) Supporting Document(s) Coronavirus 2019 Nasopharygeal Laboratory test result [facility] ([facility]) This nucleic acid amplification test was developed and its performance characteristics determined by [employer]. Nucleic acid amplification tests include PCR and TMA. This test has not been FDA cleared or approved. This test has been authorized by FDA under an Emergency Use Authorization (EUA). This test is only authorized for the duration of time the declaration that circumstances exist justifying the authorization of the emergency use of in vitro diagnostic tests for detection of SARS-CoV-2 virus and/or diagnosis of COVID-19 infection under section 564(b)(1) of the Act, 21 U.S.C. 360bbb-3 (b) (1), unless the authorization is terminated or revoked sooner. When diagnostic testing is negative, the possibility of a false negative result should be considered in the context of a patient's recent exposures and the presence of clinical signs and symptoms consistent with COVID-19. An individual without symptoms of COVID-19 and who is not shedding SARS-CoV-2 virus would expect to have a negative (not detected) result in this assay. Performed at: [address] [id number] [employer] Operator: Beatriz Raya MD, Phone: [phone] Not Detected ID Date Data Source [id number] 01/20/2020 09:00:00 AM EDT [facility] Name Value Range Interpretation Code Description Data Velma rce(s) Supporting Document(s) SARS coronavirus 2 RNA [facility] This lab was ordered by [facility] and reported by [facility]. Procedure Social History No Information
--- NOTE | 2021-03-20 13:27 | REP ---
INDICATION: short of breath, 2 weeks COMPARISON: 07/12/2018. TECHNIQUE: PA/Lateral FINDINGS: Lungs: Clear, no infiltrate. Heart: Normal in size. Mediastinum: Mediastinal silhouette unremarkable. Pleural angles: Unremarkable.. Bones and soft tissues: Unremarkable. IMPRESSION: No acute pulmonary disease. <Electronically signed by Genaro Lewis > 03/20/21 3301
== END 2021-03-20 16:19 | disposition left against medical advice (07) ==
LOC: M ED 10:16
DX: Z53.21 Procedure and treatment not carried out due to patient leaving prior to being seen by health care provider (principal)

== ENCOUNTER → 2021-03-21 | Outpatient (CLI) | payer OTHER ==
[2021-03-21 16:04] LABS: BASO # 0.1 10^3/uL (0.0-0.2); BASO % 0.6 % (0.0-1.0); EOS # 0.3 10^3/uL (0.0-0.5); EOS % 3.3 % (0.0-3.0); HEMOGLOBIN 15.8 g/dl (13.5-17.5); LYMPH % 37.2 % (24.0-44.0); MEAN CORPUSCULAR HEMOGLOBIN 30.3 pg (27.0-33.0); MEAN CORPUSCULAR HGB CONC 33.6 g/dl (32.0-36.5); MONO # 0.6 10^3/uL (0.0-0.8); MONO % 7.8 % (2.0-8.0); NEUTROPHILS % 50.8 % (36.0-66.0); PLATELET COUNT, AUTOMATED 261 10^3/uL (150-450); RED BLOOD COUNT 5.22 10^6/uL (4.30-6.10); WHITE BLOOD COUNT 7.9 10^3/uL (4.0-10.0)
[2021-03-21 16:28] LABS: ALBUMIN 4.1 GM/DL (3.2-5.2); ALT/SGPT 33 U/L (12-78); BILIRUBIN,TOTAL 0.5 MG/DL (0.2-1.0); BLOOD UREA NITROGEN 10 MG/DL (7-18); CALCIUM LEVEL 9.6 MG/DL (8.5-10.1); CARBON DIOXIDE LEVEL 31 MEQ/L (21-32); CHLORIDE LEVEL 103 MEQ/L (98-107); CK-MB VALUE MASS 1.3 NG/ML (<3.6); CPK CREATINE PHOSPHOKINASE 120 U/L (39-308); CREATININE FOR GFR 1.09 MG/DL (0.70-1.30); GLOMERULAR FILTRATION RATE > 60.0 (>56); GLUCOSE, FASTING 90 MG/DL (70-100); MAGNESIUM LEVEL 2.4 MG/DL (1.8-2.4); MB/CK RELATIVE INDEX 1.08 (< OR =4); NT-PRO BNP 71 PG/ML (<125); PHOSPHORUS LEVEL 4.6 MG/DL (2.5-4.9); POTASSIUM SERUM 4.1 MEQ/L (3.5-5.1); SODIUM LEVEL 142 MEQ/L (136-145); TOTAL PROTEIN 7.2 GM/DL (6.4-8.2); TROPONIN I < 0.02 NG/ML (< 0.10)
[2021-03-22 11:49] LABS: H PYLORI QUALITATIVE IgG DETECTED (NEGATIVE)
== END ==
LOC: M WUC 13:44
PROVIDERS: ATTEND Nurse Practitioner Family
DX: R07.9 Chest pain, unspecified (principal); K21.9 Gastro-esophageal reflux disease without esophagitis

== ENCOUNTER → 2021-03-25 | Outpatient (REF) | payer OTHER | LOC: M WUC 10:15 | PROVIDERS: ATTEND Nurse Practitioner Family | DX: K21.9 Gastro-esophageal reflux disease without esophagitis (principal); R19.7 Diarrhea, unspecified ==

== ENCOUNTER → 2021-12-09 | Outpatient (CLI) | payer OTHER ==
[2021-12-09 11:32] LABS: HEMATOCRIT 43.4 % (42.0-52.0); HEMOGLOBIN 14.9 g/dl (13.5-17.5); MEAN CORPUSCULAR HEMOGLOBIN 31.1 pg (27.0-33.0); MEAN CORPUSCULAR HGB CONC 34.3 g/dl (32.0-36.5); MEAN CORPUSCULAR VOLUME 90.6 fl (80.0-96.0); PLATELET COUNT, AUTOMATED 219 10^3/uL (150-450); RED BLOOD COUNT 4.79 10^6/uL (4.30-6.10); WHITE BLOOD COUNT 7.3 10^3/uL (4.0-10.0)
[2021-12-09 11:57] LABS: HEMOGLOBIN A1c 5.9 %
[2021-12-09 12:11] LABS: ALBUMIN 3.7 GM/DL (3.2-5.2); ALT/SGPT 27 U/L (12-78); BILIRUBIN,TOTAL 0.4 MG/DL (0.2-1.0); BLOOD UREA NITROGEN 11 MG/DL (7-18); CALCIUM LEVEL 9.2 MG/DL (8.5-10.1); CARBON DIOXIDE LEVEL 27 MEQ/L (21-32); CHLORIDE LEVEL 111 MEQ/L (98-107); CHOLESTEROL LEVEL 125 MG/DL (<200); CHOLESTEROL RISK RATIO 3.787 (<5); CREATININE FOR GFR 0.96 MG/DL (0.70-1.30); GLOMERULAR FILTRATION RATE > 60.0 (>56); GLUCOSE, FASTING 110 MG/DL (70-100); HDL CHOLESTEROL 33 MG/DL (>40); LDL CHOLESTEROL 67 MG/DL (<100); NON-HDL-C 92 MG/DL; POTASSIUM SERUM 4.7 MEQ/L (3.5-5.1); SODIUM LEVEL 143 MEQ/L (136-145); TOTAL PROTEIN 6.3 GM/DL (6.4-8.2); TRIGLYCERIDES LEVEL 126 MG/DL (<150)
[2021-12-09 12:58] LABS: TESTOSTERONE 335 NG/DL (241-827)
[2021-12-10 12:15] LABS: PROSTATIC SPECIFIC AG MONITOR 0.57 NG/ML (< 4.00)
== END ==
LOC: M LAB 09:40
PROVIDERS: ATTEND Family Medicine
DX: I10 Essential (primary) hypertension (principal); R53.83 Other fatigue; E03.9 Hypothyroidism, unspecified

== ENCOUNTER → 2022-08-18 | Outpatient (CLI) | payer OTHER ==
[2022-08-18 08:23] LABS: MEAN CORPUSCULAR HEMOGLOBIN 30.4 pg (27.0-33.0); MEAN CORPUSCULAR HGB CONC 34.1 g/dl (32.0-36.5); MEAN CORPUSCULAR VOLUME 89.1 fl (80.0-96.0); PLATELET COUNT, AUTOMATED 266 10^3/uL (150-450); RED BLOOD COUNT 4.94 10^6/uL (4.30-6.10); WHITE BLOOD COUNT 7.5 10^3/uL (4.0-10.0)
[2022-08-18 09:03] LABS: ALBUMIN 3.6 G/DL (3.2-5.2); ALKALINE PHOSPHATASE 53 U/L (46-116); ALT/SGPT 25 U/L (7.0-40); AST/SGOT 18 U/L (<34); BILIRUBIN,TOTAL 0.6 MG/DL (0.3-1.2); BLOOD UREA NITROGEN 11 MG/DL (9-23); CALCIUM LEVEL 8.8 MG/DL (8.5-10.1); CARBON DIOXIDE LEVEL 28 MMOL/L (20-31); CHLORIDE LEVEL 107 MMOL/L (98-107); CHOLESTEROL LEVEL 142 MG/DL (<200); CHOLESTEROL RISK RATIO 4.58 (<5); CREATININE FOR GFR 0.95 MG/DL (0.70-1.30); GLOMERULAR FILTRATION RATE > 60.0 (>56); GLUCOSE, FASTING 108 MG/DL (60-100); POTASSIUM SERUM 4.3 MMOL/L (3.5-5.1); PROSTATIC SPECIFIC AG MONITOR 0.64 NG/ML (< 4.00); SODIUM LEVEL 137 MMOL/L (136-145); TESTOSTERONE 241 NG/DL (241-827); THYROID STIMULATING HORMONE 2.785 uIU/ML (0.55-4.78); TRIGLYCERIDES LEVEL 185 MG/DL (<150)
== END ==
LOC: M LAB 07:43
PROVIDERS: ATTEND Family Medicine
DX: I10 Essential (primary) hypertension (principal)

== ENCOUNTER → 2023-05-07 | Outpatient (CLI) | payer OTHER ==
[2023-05-07 08:40] LABS: HEMATOCRIT 42.6 % (42.0-52.0); HEMOGLOBIN 14.6 g/dl (13.5-17.5); MEAN CORPUSCULAR HEMOGLOBIN 31.1 pg (27.0-33.0); MEAN CORPUSCULAR HGB CONC 34.3 g/dl (32.0-36.5); MEAN CORPUSCULAR VOLUME 90.6 fl (80.0-96.0); PLATELET COUNT, AUTOMATED 214 10^3/uL (150-450); WHITE BLOOD COUNT 6.9 10^3/uL (4.0-10.0)
[2023-05-07 09:11] LABS: PROSTATIC SPECIFIC AG MONITOR 0.56 NG/ML (< 4.00)
[2023-05-07 09:14] LABS: ALBUMIN 3.6 G/DL (3.2-5.2); ALKALINE PHOSPHATASE 52 U/L (46-116); ALT/SGPT 23 U/L (7.0-40); AST/SGOT 16 U/L (<34); BILIRUBIN,TOTAL 0.6 MG/DL (0.3-1.2); BLOOD UREA NITROGEN 11 MG/DL (9-23); CALCIUM LEVEL 9.2 MG/DL (8.5-10.1); CARBON DIOXIDE LEVEL 29 MMOL/L (20-31); CHLORIDE LEVEL 108 MMOL/L (98-107); CHOLESTEROL LEVEL 148 MG/DL (<200); CHOLESTEROL RISK RATIO 4.27 (<5); GLOMERULAR FILTRATION RATE > 60.0 (>56); GLUCOSE, FASTING 114 MG/DL (60-100); HDL CHOLESTEROL 34.6 MG/DL (>40); LDL CHOLESTEROL 72.2 MG/DL (<100); NON-HDL-C 113.4 MG/DL; POTASSIUM SERUM 4.3 MMOL/L (3.5-5.1); SODIUM LEVEL 143 MMOL/L (136-145); TRIGLYCERIDES LEVEL 206 MG/DL (<150)
[2023-05-07 09:15] LABS: THYROID STIMULATING HORMONE 1.952 uIU/ML (0.55-4.78)
[2023-05-07 09:16] LABS: TESTOSTERONE 307 NG/DL (241-827); TOTAL 25(OH) VITAMIN D 70.9 NG/ML (20.0-100.0)
== END ==
LOC: M LAB 08:08
PROVIDERS: ATTEND Family Medicine
DX: I10 Essential (primary) hypertension (principal); R53.83 Other fatigue; E03.9 Hypothyroidism, unspecified

== ENCOUNTER → 2023-07-07 | Outpatient (CLI) | payer OTHER | LOC: M RAD 07:58 | PROVIDERS: ATTEND Family Medicine | DX: M54.30 Sciatica, unspecified side (principal) ==

== ENCOUNTER → 2023-09-20 | Outpatient (CLI) | payer OTHER ==
[2023-09-20 08:14] LABS: HEMATOCRIT 41.7 % (42.0-52.0); HEMOGLOBIN 14.3 g/dl (13.5-17.5); MEAN CORPUSCULAR HEMOGLOBIN 31.2 pg (27.0-33.0); MEAN CORPUSCULAR HGB CONC 34.3 g/dl (32.0-36.5); MEAN CORPUSCULAR VOLUME 90.8 fl (80.0-96.0); PLATELET COUNT, AUTOMATED 209 10^3/uL (150-450); RED BLOOD COUNT 4.59 10^6/uL (4.30-6.10); WHITE BLOOD COUNT 6.8 10^3/uL (4.0-10.0)
[2023-09-20 08:46] LABS: ALBUMIN 3.3 G/DL (3.2-5.2); ALKALINE PHOSPHATASE 54 U/L (46-116); ALT/SGPT 27 U/L (7.0-40); AST/SGOT 17 U/L (<34); BILIRUBIN,TOTAL 0.4 MG/DL (0.3-1.2); BLOOD UREA NITROGEN 11 MG/DL (9-23); CALCIUM LEVEL 8.7 MG/DL (8.5-10.1); CARBON DIOXIDE LEVEL 28 MMOL/L (20-31); CHLORIDE LEVEL 108 MMOL/L (98-107); GLOMERULAR FILTRATION RATE > 60.0 (>56); GLUCOSE, FASTING 146 MG/DL (60-100); POTASSIUM SERUM 4.6 MMOL/L (3.5-5.1); PROSTATIC SPECIFIC AG MONITOR 0.49 NG/ML (< 4.00); SODIUM LEVEL 141 MMOL/L (136-145); TOTAL PROTEIN 5.9 G/DL (5.7-8.2)
[2023-09-20 08:50] LABS: TESTOSTERONE 204 NG/DL (241-827)
[2023-09-20 08:58] LABS: HEMOGLOBIN A1c 6.4 % (4.0-6.0)
== END ==
LOC: M LAB 07:38
PROVIDERS: ATTEND Family Medicine
DX: R53.83 Other fatigue (principal); I10 Essential (primary) hypertension; E07.9 Disorder of thyroid, unspecified

== ENCOUNTER → 2023-09-21 | Outpatient (REF) | payer OTHER | LOC: M SFHCDERM 17:25 | PROVIDERS: ATTEND Physician Assistant | DX: L82.1 Other seborrheic keratosis (principal) ==

== ENCOUNTER → 2024-03-20 | Outpatient (CLI) | payer OTHER ==
[2024-03-20 08:43] LABS: HEMATOCRIT 46.6 % (42.0-52.0); HEMOGLOBIN 16.1 g/dl (13.5-17.5); MEAN CORPUSCULAR HEMOGLOBIN 30.4 pg (27.0-33.0); MEAN CORPUSCULAR HGB CONC 34.5 g/dl (32.0-36.5); MEAN CORPUSCULAR VOLUME 87.9 fl (80.0-96.0); PLATELET COUNT, AUTOMATED 200 10^3/uL (150-450)
[2024-03-20 08:57] LABS: PROSTATIC SPECIFIC AG MONITOR 0.64 NG/ML (< 4.00)
[2024-03-20 08:58] LABS: HEMOGLOBIN A1c 6.1 % (4.0-6.0)
[2024-03-20 08:59] LABS: ALBUMIN 3.7 G/DL (3.2-5.2); ALKALINE PHOSPHATASE 50 U/L (40-129); ALT/SGPT 26 U/L (7.0-40); AST/SGOT 12 U/L (<34); BILIRUBIN,TOTAL 0.5 MG/DL (0.3-1.2); BLOOD UREA NITROGEN 12 MG/DL (9-23); CALCIUM LEVEL 9.8 MG/DL (8.5-10.1); CARBON DIOXIDE LEVEL 29 MMOL/L (20-31); CHLORIDE LEVEL 108 MMOL/L (98-107); CHOLESTEROL LEVEL 124 MG/DL (<200); CHOLESTEROL RISK RATIO 4.03 (<5); CREATININE FOR GFR 0.89 MG/DL (0.70-1.30); GLOMERULAR FILTRATION RATE > 60.0 (>56); GLUCOSE, FASTING 114 MG/DL (60-100); HDL CHOLESTEROL 30.7 MG/DL (>40); LDL CHOLESTEROL 64.1 MG/DL (<100); NON-HDL-C 93.3 MG/DL; POTASSIUM SERUM 4.6 MMOL/L (3.5-5.1); SODIUM LEVEL 142 MMOL/L (136-145); TOTAL PROTEIN 6.5 G/DL (5.7-8.2); TRIGLYCERIDES LEVEL 146 MG/DL (<150)
[2024-03-20 09:01] LABS: TESTOSTERONE 240 NG/DL (241-827); THYROID STIMULATING HORMONE 1.989 uIU/ML (0.55-4.78)
== END ==
LOC: M RAD 07:42
PROVIDERS: ATTEND Family Medicine
DX: I10 Essential (primary) hypertension (principal); R53.83 Other fatigue; E03.9 Hypothyroidism, unspecified; R00.1 Bradycardia, unspecified

== ENCOUNTER → 2024-07-11 | Outpatient (REF) | payer OTHER ==
[2024-07-11 14:46] LABS: BASO # 0.1 10^3/uL (0.0-0.2); BASO % 0.6 % (0.0-1.0); EOS # 0.2 10^3/uL (0.0-0.5); EOS % 2.2 % (0.0-3.0); HEMATOCRIT 49.1 % (42.0-52.0); HEMOGLOBIN 16.3 g/dl (13.5-17.5); LYMPH # 2.5 10^3/uL (1.5-5.0); LYMPH % 30.8 % (24.0-44.0); MEAN CORPUSCULAR HEMOGLOBIN 30.9 pg (27.0-33.0); MEAN CORPUSCULAR HGB CONC 33.2 g/dl (32.0-36.5); MONO # 0.7 10^3/uL (0.0-0.8); MONO % 8.5 % (2.0-8.0); NEUTROPHILS # 4.6 10^3/uL (1.5-8.5); NEUTROPHILS % 57.8 % (36.0-66.0); PLATELET COUNT, AUTOMATED 239 10^3/uL (150-450); RED BLOOD COUNT 5.28 10^6/uL (4.30-6.10)
[2024-07-11 14:49] LABS: ALBUMIN 4.2 G/DL (3.2-5.2); ALKALINE PHOSPHATASE 58 U/L (40-129); ALT/SGPT 36 U/L (7.0-40); AST/SGOT 20 U/L (<34); BILIRUBIN,TOTAL 0.6 MG/DL (0.3-1.2); BLOOD UREA NITROGEN 9 MG/DL (9-23); CALCIUM LEVEL 9.1 MG/DL (8.5-10.1); CARBON DIOXIDE LEVEL 27 MMOL/L (20-31); CHLORIDE LEVEL 106 MMOL/L (98-107); CHOLESTEROL LEVEL 130 MG/DL (<200); CHOLESTEROL RISK RATIO 3.96 (<5); CREATININE FOR GFR 0.84 MG/DL (0.70-1.30); GLOMERULAR FILTRATION RATE > 60.0 (>56); GLUCOSE, FASTING 115 MG/DL (60-100); HDL CHOLESTEROL 32.8 MG/DL (>40); LDL CHOLESTEROL 64.2 MG/DL (<100); NON-HDL-C 97.2 MG/DL; POTASSIUM SERUM 4.3 MMOL/L (3.5-5.1); SODIUM LEVEL 140 MMOL/L (136-145); TOTAL PROTEIN 7.2 G/DL (5.7-8.2); TRIGLYCERIDES LEVEL 165 MG/DL (<150)
[2024-07-11 14:50] LABS: THYROID STIMULATING HORMONE 1.492 uIU/ML (0.55-4.78)
[2024-07-11 14:51] LABS: TOTAL 25(OH) VITAMIN D 72.2 NG/ML (20.0-100.0)
[2024-07-11 15:08] LABS: HEMOGLOBIN A1c 5.6 % (4.0-6.0)
== END ==
LOC: M LAB REF 13:53
PROVIDERS: ATTEND Pediatrics
DX: E11.9 Type 2 diabetes mellitus without complications (principal); E55.9 Vitamin D deficiency, unspecified

== ENCOUNTER → 2024-08-08 | Outpatient (CLI) | payer OTHER | LOC: M RAD 10:22 | PROVIDERS: ATTEND Pediatrics | DX: Z12.2 Encounter for screening for malignant neoplasm of respiratory organs (principal); F17.210 Nicotine dependence, cigarettes, uncomplicated; K44.9 Diaphragmatic hernia without obstruction or gangrene; J47.9 Bronchiectasis, uncomplicated; R91.1 Solitary pulmonary nodule ==

== ENCOUNTER → 2025-05-02 | Outpatient (REF) | payer OTHER ==
[~2025-05-02] MED LIST changes: +ERGO125013 PO; +LISI40TA10 PO; -LISI40TA4 PO; -VITA500045 PO
[2025-05-02 17:24] LABS: ALT/SGPT 25 U/L (7.0-40); AST/SGOT 21 U/L (<34); CALCIUM LEVEL 9.0 MG/DL (8.5-10.1); CARBON DIOXIDE LEVEL 30 MMOL/L (20-31); CHLORIDE LEVEL 105 MMOL/L (98-107); CHOLESTEROL LEVEL 128 MG/DL (<200); CHOLESTEROL RISK RATIO 3.33 (<5); CREATININE FOR GFR 0.81 MG/DL (0.70-1.30); GLOMERULAR FILTRATION RATE > 90.0 (>56); LDL CHOLESTEROL 48.6 MG/DL (<100); NON-HDL-C 89.6 MG/DL; POTASSIUM SERUM 4.4 MMOL/L (3.5-5.1); SODIUM LEVEL 142 MMOL/L (136-145); TRIGLYCERIDES LEVEL 205 MG/DL (<150)
[2025-05-02 18:24] LABS: ESTIMATED AVERAGE GLUCOSE 117.0 MG/DL (60-110)
== END ==
LOC: M LAB REF 16:29
PROVIDERS: ATTEND Pediatrics
DX: E11.9 Type 2 diabetes mellitus without complications (principal); E78.5 Hyperlipidemia, unspecified; G89.29 Other chronic pain; M54.50 Low back pain, unspecified